=== PATIENT | female | born 1995 | race African-American/Black ===

== ENCOUNTER 2022-04-18 09:17 | Emergency (ER) | payer MEDICAID ==
[~2022-04-18] VITALS: Ht 170.2 cm; Wt 64.0 kg
[2022-04-18 09:29] VITALS: BP 126/69
[2022-04-18] MEDS ORDERED: ACETAMINOPHEN 325MG TABLET PO ONE (10:30)
[2022-04-18] MEDS ORDERED: VISCOUS LIDOCAINE 2% 15 ML UDC PO STA (11:55)
[2022-04-18] MEDS ORDERED: ACETAMINOPHEN 325MG TABLET PO SCH (13:30)
[2022-04-18] MEDS ORDERED: IBUP-2028 MT (14:10)
== END 2022-04-18 14:55 | disposition home or self-care (01) ==
LOC: ER 09:17
DX: J02.9 Acute pharyngitis, unspecified (principal)
CPT/HCPCS: 81025; 87070; 87430; 99283